=== PATIENT | female | born 1990 | race African-American/Black ===

== ENCOUNTER 2022-10-06 03:03 | Emergency (ER) | payer MEDICAID ==
[~2022-10-06] VITALS: Ht 172.7 cm; Wt 146.0 kg
[2022-10-06 03:05] VITALS: O2SAT 98
[2022-10-06 03:29] VITALS: TEMP 98.1
[2022-10-06 04:55] LABS: BASOPHILS % 0.5 % (0.0-2.0); EOSINOPHILS % 0.3 % (0.0-5.0); HEMATOCRIT. 46.2 % (36.0-48.0); HEMOGLOBIN. 14.6 g/dL (12.0-16.0); LYMPHOCYTES % 10.7 % (20.0-50.0); MEAN CORPUSCULAR HEMOGLOBIN 26.2 pg (28.0-32.0); MEAN CORPUSCULAR HGB CONC 31.6 g/dL (31.0-37.0); MEAN CORPUSCULAR VOLUME 82.9 fL (81.0-99.0); MEAN PLATELET VOLUME 8.6 fl (7.4-10.4); MONOCYTES % 10.3 % (2.0-8.0); NEUTROPHILS % 78.2 % (40.0-76.0); PLATELET 362 x1000/uL (130-400); RED BLOOD CELL COUNT 5.57 mill/uL (4.2-5.4); RED CELL DISTRIBUTION WIDTH 15.2 % (11.6-14.6); WHITE BLOOD COUNT 12.3 x1000/uL (4.5-11.0)
[2022-10-06 05:02] LABS: CHLORIDE 98 mEq/L (98-107); INDEX HEMOLYSI 1 (1-3); INDEX ICTERIC 1 (1-4); INDEX LIPEMIC 1 (1-3); POTASSIUM 3.2 mEq/L (3.5-5.1); SODIUM 136 mEq/L (136-145)
[2022-10-06 05:06] LABS: INR 1.1; PROTHROMBIN TIME 11.4 sec (9.6-11.0)
[2022-10-06 05:10] LABS: ALANINE AMINOTRANSFERASE 21 IU/L (13-61); ALBUMIN 4.2 g/dL (3.4-5.0); ASPARTATE AMINOTRANSFERASE 16 IU/L (15-37); BILIRUBIN TOTAL 0.8 mg/dL (0.1-1.0); CARBON DIOXIDE 28 mEq/L (21-32); CREATININE 0.9 mg/dL (0.6-1.3); GLUCOSE 109 mg/dL (70-105); PROTEIN TOTAL 9.8 g/dL (6.0-8.3); UREA NITROGEN BLOOD 20 mg/dL (7-21)
[2022-10-06] MEDS ORDERED: MORPHINE SULFATE 4 MG/ML CPJ (NOT FOR IM USE) IV STA (05:14)
[2022-10-06] MEDS ORDERED: ONDANSETRON HCL 4MG/2ML INJ IV STA (05:14)
[2022-10-06] MEDS ORDERED: SODIUM CHLORIDE 0.9% 1,000 ML IV ONE (05:15)
[2022-10-06 05:23] LABS: HCG SCREEN NEGATIVE
[2022-10-06] MEDS ORDERED: KCL 20MEQ/100ML PREMIX 100 ML IV ONE (07:30)
[2022-10-06] MEDS ORDERED: ONDANSETRON HCL 4MG/2ML INJ IV ONE (07:30)
[2022-10-06] MEDS ORDERED: HALOPERIDOL LACTATE 5MG/ML VIAL IM ONE (07:45)
[2022-10-06 08:13] VITALS: BP 194/131; PULSE 117; RESP 22
== END 2022-10-06 11:14 | disposition left against medical advice (07) ==
LOC: ER 03:37 → EDBEDREQ 10:46 → EDBEDREQTM 10:46 → CANBEDREQ 11:13 → ER 11:14
DX: R10.84 Generalized abdominal pain (principal); R11.2 Nausea with vomiting, unspecified; I10 Essential (primary) hypertension; Z98.890 Other specified postprocedural states
CPT/HCPCS: 80053; 84703; 83690; 85025; 85610; 36415; 74176; 76830; 76856; 96361; 96374; 96375; 96376; 99285; J1630; J2405; J3480; J2270; J7030; Z7610 ×3

== ENCOUNTER 2022-10-28 10:50 | Emergency (ER) | payer MEDICAID ==
[~2022-10-28] VITALS: Ht 167.6 cm; Wt 120.0 kg
[2022-10-28 10:56] VITALS: O2SAT 99
[2022-10-28] MEDS ORDERED: ONDANSETRON 4MG ODT PO STA (11:19)
[2022-10-28 11:48] LABS: HEMATOCRIT. 41.6 % (36.0-48.0); HEMOGLOBIN. 13.5 g/dL (12.0-16.0); MEAN CORPUSCULAR HEMOGLOBIN 26.8 pg (28.0-32.0); MEAN CORPUSCULAR HGB CONC 32.4 g/dL (31.0-37.0); MEAN CORPUSCULAR VOLUME 82.6 fL (81.0-99.0); MEAN PLATELET VOLUME 8.2 fl (7.4-10.4); PLATELET 357 x1000/uL (130-400); RED BLOOD CELL COUNT 5.04 mill/uL (4.2-5.4); RED CELL DISTRIBUTION WIDTH 15.2 % (11.6-14.6); WHITE BLOOD COUNT 10.1 x1000/uL (4.5-11.0)
[2022-10-28 11:49] LABS: DIFFERENTIAL COMMENT 1
[2022-10-28 11:55] LABS: CHLORIDE 103 mEq/L (98-107); INDEX HEMOLYSI 1 (1-3); INDEX ICTERIC 1 (1-4); INDEX LIPEMIC 1 (1-3); POTASSIUM 3.7 mEq/L (3.5-5.1); SODIUM 134 mEq/L (136-145)
[2022-10-28 12:02] LABS: ALANINE AMINOTRANSFERASE 17 IU/L (13-61); ALBUMIN 3.7 g/dL (3.4-5.0); ASPARTATE AMINOTRANSFERASE 10 IU/L (15-37); BILIRUBIN TOTAL 0.5 mg/dL (0.1-1.0); CALCIUM 9.4 mg/dL (8.5-10.1); CARBON DIOXIDE 26 mEq/L (21-32); CREATININE 0.7 mg/dL (0.6-1.3); GLUCOSE 130 mg/dL (70-105); PROTEIN TOTAL 8.9 g/dL (6.0-8.3); UREA NITROGEN BLOOD 6 mg/dL (7-21)
[2022-10-28] MEDS ORDERED: HYDROCODONE/ACETAMINOPHEN 5/325MG TABLET PO ONE (13:00)
[2022-10-28 13:01] LABS: PLATELET ESTIMATE NORMAL
[2022-10-28] MEDS ORDERED: TOPUD MT (13:09)
[2022-10-28 13:13] LABS: *AMPHETAMINES SCREEN URINE NEGATIVE (NEGATIVE); *BARBITURATES SCREEN URINE NEGATIVE (NEGATIVE); *BENZODIAZEPINES SCREEN URINE NEGATIVE (NEGATIVE); *COCAINE SCREEN URINE NEGATIVE (NEGATIVE); ECSTASY MDMA SCREEN URINE NEGATIVE (NEGATIVE); METHADONE URINE SCREEN NEGATIVE (NEGATIVE); OPIATES URINE SCREEN NEGATIVE (NEGATIVE); PHENCYCLIDINE URINE SCREEN NEGATIVE (NEGATIVE)
[2022-10-28 13:14] LABS: CANNABINOID URINE SCREEN PRESUMTIVE POSITIVE (NEGATIVE)
[2022-10-28] MEDS ORDERED: FAMO40TA7 MT (13:20)
[2022-10-28] MEDS ORDERED: ONDA4TAB11 PO (13:20)
[2022-10-28] MEDS ORDERED: FAMOTIDINE 20MG TABLET PO SCH (13:30)
[2022-10-28] MEDS ORDERED: ONDANSETRON 4MG ODT PO ONE (13:30)
[2022-10-28 14:16] VITALS: BP 133/89; PULSE 79; RESP 19; TEMP 98.2
== END 2022-10-28 14:22 | disposition home or self-care (01) ==
LOC: ER 10:50
DX: R10.9 Unspecified abdominal pain (principal); F12.10 Cannabis abuse, uncomplicated; I10 Essential (primary) hypertension; Z98.890 Other specified postprocedural states
CPT/HCPCS: 99284; 80053; 80305; 81025; 83605; 83690; 85025; 36415; Q0162